=== PATIENT | female | born 1945 | race Caucasian/White ===

== ENCOUNTER 2016-06-07 19:51 | Inpatient (IN) | payer OTHER, MEDICARE ==
--- NOTE | 2016-06-07 19:54 | PDOC ---
History of Present Illness - General History Source: Patient Exam Limitations: No Limitations - History of Present Illness Initial Comments: 06/07/16 20:27 The patient is a 70 year old female, with no significant past medical history, who presents today with right hand and right wrist swelling after being scratched by her cat 2 days ago. The patient reports that her cat accidentally got stuck in the closet and scratched and clawed at her when she attempted to set the cat free. She states that the right wrist and hand became increasingly swollen today. She has multiple other scratches on her left arm and lower extremities. Denies fever, chills, nausea, vomiting. Denies chest pain, cough, SOB. Allergies: none reported ROS General: No fevers or chills, no weakness, no weight loss HEENT: No change in vision. No sore throat,. No ear pain CardioVascular: No chest pain or shortness of breath Respiratory:No cough, or wheezing. Gastrointestinal: no nausea, vomiting, diarrhea or constipation, No rectal bleeding Genitourinary: No dysuria, hematuria, or frequency Musculoskeletal: +right hand and wrist swelling. Neurologic: No headache, vertigo, dizziness or loss of consciousness Psychiatric: nor depression Skin: No rashes or easy bruising Endocrine: no increased thirst or abnormal weight change Allergic: no skin or latex allergy All other systems reviewed and normal PE GENERAL: The patient is awake, alert, and fully oriented, in no acute distress. HEAD: Normal with no signs of trauma. EYES: Pupils equal, round and reactive to light, extraocular movements intact, sclera anicteric, conjunctiva clear. EXTREMITIES: Right hand markedly swollen to approximately just below the elbow. Blistering of the skin over the wrist area. Marked decreased ROM secondary to swelling. Swelling extends diffusely to all fingers. No palpable collection. Increased warmth and diffuse erythema of the swollen area. No ascending lymphangitis above the elbow. NEUROLOGICAL: Normal speech, normal gait. PSYCH: Normal mood, normal affect. SKIN: Warm, Dry, normal turgor, no rashes or lesions noted. 06/07/16 20:49 <Yin Fierro - Last Filed: 06/07/16 20:49> - General History Source: Patient Exam Limitations: No Limitations - History of Present Illness Initial Comments: 06/07/16 20:21 A portion of this note was documented by scribe services under my direction. I have reviewed the details of the note, within reason, and agree with the documentation. The case summary and management plan written by me. EKG normal sinus rhythm at a rate of 83, no acute ST-T wave changes, normal intervals. Assessment and plan: This is an 70-year-old female who takes no medication does not have a doctor that she follows up with it is otherwise healthy who was bit and scratched by her cat 2 days ago. Patient has had progressive pain swelling and redness of her right hand and wrist and forearm area. Patient comes in today for evaluation of the area. Patient's lab work shows a normal white count and no left shift. Patient is afebrile. Patient is able to tolerate by mouth's however given the extent of the infection and the rapidity with which it progressed I feel she would benefit with 24-48 hours of IV antibiotics. Discussed admission with Dr. Mary from the hospitalist service who will admit patient. <Albertina Moulton I - Last Filed: 06/07/16 21:03> - General Chief Complaint: Bite Stated Complaint: CAT BITE ON WEDNESDAY Time Seen by Provider: 06/07/16 19:53 Past History <Yin Fierro - Last Filed: 06/07/16 20:49> <Albertina Moulton I - Last Filed: 06/07/16 21:03> - Past Medical History Allergies/Adverse Reactions: Allergies Allergy/AdvReac Type Severity Reaction Status Date / Time No Known Allergies Allergy Verified 06/07/16 19:54 Home Medications: Ambulatory Orders NK [No Known Home Medication] 06/07/16 *Physical Exam - Vital Signs Last Vital Signs Temp Pulse Resp BP Pulse Ox 98 F 80 16 119/73 100 06/07/16 19:56 06/07/16 19:56 06/07/16 19:56 06/07/16 19:56 06/07/16 19:56 <Yin Fierro - Last Filed: 06/07/16 20:49> ED Treatment Course - LABORATORY CBC & Chemistry Diagram: 06/07/16 20:10 06/07/16 20:10 <Yin Fierro - Last Filed: 06/07/16 20:49> - LABORATORY CBC & Chemistry Diagram: 06/07/16 20:10 06/07/16 20:10 <Albertina Moulton I - Last Filed: 06/07/16 21:03> *DC/Admit/Observation/Transfer - Attestations Scribe Attestion: 06/07/16 20:28 Documentation prepared by GOMEZ Hess, acting as director of medical education for Albertina Moulton MD. <Yin Fierro - Last Filed: 06/07/16 20:49> - Discharge Dispostion Admit: Yes <Albertina Moulton I - Last Filed: 06/07/16 21:03> Diagnosis at time of Disposition: Cellulitis of right hand - Discharge Dispostion Disposition: HOME Condition at time of disposition: Stable
[2016-06-07] MEDS ORDERED: PIPERACILLIN/TAZOB 3.375 GM/50 ML PRE-DOCKED IVPB STA (19:55)
[2016-06-07 20:28] LABS: BASOPHIL 0.6 % (0-2.0); EOSINOPHIL 0.5 % (0-4.5); MCH 28.6 pg (25.7-33.7); MCHC 32.5 g/dl (32.0-36.0); MEAN CELL VOLUME 88.1 fl (80-96); MEAN PLT VOLUME 8.6 fl (7.5-11.1); NEUTROPHILS 76.7 % (42.8-82.8); PLATELET COUNT 287 K/MM3 (134-434); RDW 12.9 % (11.6-15.6); WHITE BLOOD COUNT 9.2 K/mm3 (4.0-10.0)
[2016-06-07 20:42] LABS: ALBUMIN 3.5 g/dl (3.5-5.0); ALK PHOS 59 U/L (32-92); ANION GAP 12 (8-16); BILIRUBIN,TOTAL 0.4 mg/dl (0.2-1.0); CALCIUM 8.9 mg/dl (8.4-10.2); CO2 24 mmol/L (22-28); CREATININE 0.8 mg/dl (0.6-1.3); GLUCOSE,RANDOM 124 mg/dl (74-106); SGOT/AST 32 U/L (10-42); SGPT/ALT 29 U/L (10-40); TOT PROT 6.8 g/dl (6.4-8.3)
[2016-06-07] MEDS ORDERED: DIPHTH,PERTUSS(ACELL),TET 0.5 ML DISP.SYRIN IM ONE (21:28)
--- NOTE | 2016-06-07 23:38 | HP ---
Admitting History and Physical - Admission Chief Complaint: cat bite, scratch History of Present Illness: The patient is a 70 year old female, with no significant past medical history, who presents today with right hand and right wrist swelling after being scratched by her cat 2 days ago. She reports increased swelling, redness and stiffness to R wrist area. She reports draining pus from R wrist wound. She also received multiple scratch elsewhere to her arms and legs. She reports swelling to the L forearm area but no discomfort. She reports having low grade temp 1 day ago. She denies nausea, vomiting, diarrhea, chills, body aches. She denies chest pain, sob, palps, syncope, dysuria, bowel trouble. pmh/psh- denies social- denies famhx- dad- prostate ca Ros neg except for hpi Physical general- in nad, alert hent- at/nc, asher, neck supple, trachea midline, eomi resp- no cough, no rales, no wheeze, lungs ctab, no accessory muscle use cards- s1s2 heard, no jvd, no leg edema, extremity pulses +2 skin- cellulitis to R wrist, swelling to hand, multiple scratches to arms and lower extremities gi- soft non tender, no guarding, no rebound, no distention musk- decreased arom to R wrist, intact arom to R elbow, shoulder. redness and swelling to R wrist. normal arom to ble, LUE neuro- cn2-12 grossly intact, asher, no seizures, speech clear psych- cooperative, no agitation, normal affect Prob list cellulitis to R wrist possible abscess to L forearm imaging: cxr image reviewed forearm and wrist x ray pending ekg reviewed A/p The patient is a 70 year old female, with no significant past medical history, who presents today with right hand and right wrist swelling after being scratched by her cat 2 days ago admitted for evaluation of their emergent condition. 1. Cellulitis to R wrist Was bit and scratched by her cat Started on zosyn iv Got tdap in er ID consult Pain control, arm elevation Follow up wound cultures Check x ray of wrist Check crp, esr Local wound care 2. Possible abscess to L forearm fluctulance to L forearm area with swelling but no redness, abrasion overlying skin check x ray Dvt prophy scd, oob, hep sq fen reg diet dispo- requires > 2mn stay for acute cellulitis History Source: Patient Limitations to Obtaining History: No Limitations - Smoking History Smoking history: Never smoked Have you smoked in the past 12 months: No - Alcohol/Substance Use Hx Alcohol Use: No Home Medications - Allergies Allergies/Adverse Reactions: Allergies Allergy/AdvReac Type Severity Reaction Status Date / Time No Known Allergies Allergy Verified 06/07/16 19:54 - Home Medications Home Medications: Ambulatory Orders NK [No Known Home Medication] 06/07/16 Physical Examination Vital Signs: Vital Signs Temperature 98 F 06/07/16 19:56 Pulse Rate 80 06/07/16 19:56 Respiratory Rate 16 06/07/16 19:56 Blood Pressure 119/73 06/07/16 19:56 O2 Sat by Pulse Oximetry (%) 100 06/07/16 19:56 Visit type - Emergency Visit Emergency Visit: Yes ED Registration Date: 06/07/16 Care time: The patient presented to the Emergency Department on the above date and was hospitalized for further evaluation of their emergent condition. - New Patient This patient is new to me today: Yes Date on this admission: 06/08/16 - Critical Care Critical Care patient: No
[2016-06-07] MEDS ORDERED: ACETAMINOPHEN 325 MG TABLET (FP) PO PRN (23:51)
[2016-06-07] MEDS ORDERED: ONDANSETRON 4 MG/2 ML VIAL IVPB PRN (23:51)
[2016-06-08 00:19] VITALS: BMI 20.1
[2016-06-08 08:34] LABS: MCH 29.1 pg (25.7-33.7); MCHC 32.6 g/dl (32.0-36.0); MEAN CELL VOLUME 89.3 fl (80-96); PLATELET COUNT 298 K/MM3 (134-434); WHITE BLOOD COUNT 6.9 K/mm3 (4.0-10.0)
[2016-06-08 08:53] LABS: INR 1.15 (0.82-1.09); PROTHROMBIN TIME (PATIENT) 12.5 SEC (10.2-13.0)
[2016-06-08 08:57] LABS: CALCIUM 9.1 mg/dl (8.4-10.2); CREATININE 0.5 mg/dl (0.6-1.3)
[2016-06-08 09:00] LABS: ACTIVATED PTT 26.2 SECONDS (24.0-38.9)
[2016-06-08] MEDS: HEPARIN NA (PORCINE) 5,000 UNITS/ML 1ML VIAL SQ SCH ×2 (09:47→21:24)
--- NOTE | 2016-06-08 09:50 | PN ---
Progress Note (short form) - Note Progress Note: ID Consult dictated Cellulitis R hand S/P cat scratch/ bite Pending c/s, empiric unasyn/ vancomycin Elevation, analgesics
[2016-06-08] MEDS ORDERED: PNEUMOC 13-VAL CONJ-DIP CRM/PF 0.5 ML DISP.SYRIN IM ONE (10:00)
--- NOTE | 2016-06-08 10:20 | EKG ---
Test Reason : Blood Pressure : / mmHG Vent. Rate : 083 BPM Atrial Rate : 083 BPM P-R Int : 138 ms QRS Dur : 072 ms QT Int : 354 ms P-R-T Axes : 093 057 071 degrees QTc Int : 415 ms POOR DATA QUALITY, INTERPRETATION MAY BE ADVERSELY AFFECTED NORMAL SINUS RHYTHM POSSIBLE LEFT ATRIAL ENLARGEMENT BORDERLINE ECG NO PREVIOUS ECGS AVAILABLE Confirmed by ALEX CLAY MD ([id number]) on 06/08/2016 10:20:16 AM Referred By: YESSENIA Confirmed By:ALEX CLAY MD
--- NOTE | 2016-06-08 10:45 | CONS ---
DATE OF CONSULTATION: HISTORY: The patient is a 70-year-old female previously healthy, nondiabetic evaluated for right hand cellulitis. The patient had sustained cat scratches and bites to multiple areas of her body on Sunday, June 05, 2016. She reports that the cat is a house cat, and she has been taking care of her for the last 3 years. She is up to date with respect to immunizations. On Wednesday, the cat was caught inside a kitchen cabinet. The patient attempted to extract the cat from the cabinet, however, sustained multiple bites and scratches to both upper and lower extremities the most significant of which was the right wrist area. She treated it topically with peroxide. The developed worsening right hand and wrist swelling and erythema. She also noted some purulent drainage from the right wrist area and low-grade temperature. She presented to the emergency room where she was diagnosed with cellulitis of the right hand. She was empirically treated with Zosyn. She received a dose of tetanus toxoid. The patient reports the cat is up to date with immunizations. No reported fever or chills. PAST MEDICAL HISTORY: Negative. ALLERGIES: No known allergies. SOCIAL HISTORY: Lives at home. Nonsmoker, nondrinker. REVIEW OF SYSTEMS: Neurologic: No loss of consciousness, seizure activity, focal weakness. Cardiac: Negative chest pain or palpitations. Respiratory: Negative cough or sputum production. Gastrointestinal: Negative vomiting or diarrhea. Genitourinary: Negative for urinary tract infection. LABORATORY DATA: White count 6.9, hematocrit 35.6, platelet count 298. Liver enzymes normal. Blood cultures and wound culture pending. Creatinine 0.5. X-ray shows soft tissue swelling of the right hand. PHYSICAL EXAMINATION: General: She is awake and alert. She is not acutely toxic appearing. Vital Signs: Temperature 99.1, blood pressure 106/60, pulse 95 and regular, respirations 20 per minute. HEENT: Anicteric. Neck: Supple. Heart: S1, S2. Lungs: Clear. Abdomen: Soft and nontender. Extremities: Negative for edema. Right hand: There is an area of erythema present along the radial artery of the dorsum of the right wrist. It is erythematous and warm to touch. There is tenderness. There is no fluctuance or expressible pus. There is swelling of the dorsum of the right hand. Multiple scratch beckman are also noted on the right upper extremity as well as the lower extremities bilaterally. They do not appear to be infected. Lymphatic: No lymphangitic streaking. No epitrochlear or axillary adenopathy. IMPRESSION: 1. Cellulitis of the right hand. 2. Status post cat scratches and bites to the right upper extremity. PLAN: Pending cultures. Empiric antibiotic coverage with vancomycin and Unasyn. Continue elevation and analgesics. Warm compresses. We will follow. Thank you for the kind referral. RIANNA WASHBURN M.D. [id number]
[2016-06-08] MEDS: AMPICILLIN NA/SULBACTAM NA 100 ML IVPB SCH ×3 (11:18→21:23)
[2016-06-08] MEDS: VANCOMYCIN 1 GRAM (PRE-DOCKED) 250 ML IVPB SCH ×2 (11:26→22:42)
--- NOTE | 2016-06-08 12:12 | PN ---
[id number] of the right wrist OBJECTIVE: patient is a 70 year old female, with no significant past medical history, she was admitted from the emergency department for right hand cellulitis status post cat bite (06/05/2016) Vital Signs Period Temp Pulse Resp BP Sys/Mchugh Pulse Ox Last 24 Hr 98.8 F-99.1 F 73-95 16-20 106-119/58-72 96-99 GENERAL: The patient is awake, alert, and fully oriented, in no acute distress. HEAD: Normal with no signs of trauma. EYES: PERRL, extraocular movements intact, sclera anicteric, conjunctiva clear. No ptosis. ENT: Ears normal, nares patent, oropharynx clear without exudates, moist mucous membranes. NECK: Trachea midline, full range of motion, supple. LUNGS: Breath sounds equal, clear to auscultation bilaterally, no wheezes, no crackles, no accessory muscle use. HEART: Regular rate and rhythm, S1, S2 without murmur, rub or gallop. ABDOMEN: Soft, nontender, nondistended, normoactive bowel sounds, no guarding, no rebound, no hepatosplenomegaly, no masses. EXTREMITIES: 2+ pulses, warm, well-perfused, RIGHT UPPER EXTREMITY: +1 edema, puncture wound noted to the medial wrist, 6 cm of erythema, area marked NEUROLOGICAL: Cranial nerves II through XII grossly intact. Normal speech, gait not observed. PSYCH: Normal mood, normal affect. SKIN: Warm, dry, normal turgor, no rashes or lesions noted Laboratory Results - last 24 hr 06/08/16 06/08/16 06/08/16 07:57 08:00 08:00 WBC 6.9 RBC 3.98 Hgb 11.6 Hct 35.6 MCV 89.3 MCHC 32.6 RDW 13.0 Plt Count 298 MPV 9.0 ESR 90 H INR 1.15 PTT (Actin FS) 26.2 L Sodium Potassium Chloride Carbon Dioxide Anion Gap BUN Creatinine Random Glucose Calcium 06/08/16 08:00 WBC RBC Hgb Hct MCV MCHC RDW Plt Count MPV ESR INR PTT (Actin FS) Sodium 138 Potassium 3.9 Chloride 104 Carbon Dioxide 24 Anion Gap 10 BUN 14 D Creatinine 0.5 L D Random Glucose 103 Calcium 9.1 Active Medications Generic Name Dose Route Start Last Admin Trade Name Freq PRN Reason Stop Dose Admin Acetaminophen 650 mg 06/07/16 23:51 Tylenol - PO Q4H PRN FEVER OR PAIN Heparin Sodium (Porcine) 5,000 unit 06/08/16 10:00 06/08/16 09:47 Heparin - SQ 5,000 unit BID JOHN Administration Ampicillin Sodium/Sulbactam Sodium 100 mls @ 200 mls/hr 06/08/16 10:00 11:18 Unasyn 1.5 Gm (Pre-Docked) IVPB 200 mls/hr Q6H-IV JOHN Administration Vancomycin HCl 250 mls @ 166.667 mls/hr 06/08/16 10:30 06/08/16 11:26 Vancomycin (Pre-Docked) IVPB 166.667 mls/hr Q12H JOHN Administration Ondansetron HCl 4 mg 06/07/16 23:51 Zofran Injection IVPB Q6H PRN NAUSEA IMAGING xray of right wrist/forearm, soft tissue swelling ASSESSMENT/PLAN: 1) MS: s/p cat bite, right wrist cellulitis - caontinue unasyn and vancomycin - prn pain medication - f/u wound/blood cultures - appreciate, hand surgeon input (Joseph), case discussed with DAKOTAH Mendoza will evaluate patient today Dvt prophy scd, oob, hep sq fen reg diet dispo- requires > 2mn stay for acute cellulitis Visit type - Emergency Visit Emergency Visit: Yes ED Registration Date: 06/07/16 Care time: The patient presented to the Emergency Department on the above date and was hospitalized for further evaluation of their emergent condition. - New Patient This patient is new to me today: Yes Date on this admission: 06/08/16 - Critical Care Critical Care patient: No - Discharge Referral Referred to [facility] No
[2016-06-08 12:32] LABS: PH,URINE 7.5 (4.5-8); URINE APPEARANCE Clear; URINE BILIRUBIN Negative (NEGATIVE); URINE BLOOD Trace-intact (NEGATIVE); URINE GLUCOSE (UA) Negative (NEGATIVE); URINE KETONE Negative (NEGATIVE); URINE LEUK ESTERASE Negative (NEGATIVE); URINE NITRITE Negative (NEGATIVE); URINE PROTEIN Negative (NEGATIVE); URINE UROBILINOGEN 1.0 E.U/dl (0.2-1.0)
[2016-06-08 13:15] LABS: URINE COLOR YELLOW
--- NOTE | 2016-06-08 18:22 | CONSULT ---
Consult - text type - Consultation Consultation Note: Orthopedic Consult Note: Patient seen and examined, chart and radiographs reviewed. Consult Request Right Wrist: The patient is a 70 year old female, with no significant past medical history, who presented today with right hand and right wrist swelling after being scratched by her cat 4 days ago. At the time of the injury she relates having increased swelling, redness and stiffness to R wrist area. She reports draining pus from R wrist wound. She reports swelling to the L forearm area but no discomfort. She reports having low grade temp 3 day ago. S: She denies nausea, vomiting, diarrhea, chills, body aches. She denies chest pain, sob, palps, syncope, dysuria, bowel trouble. Overall relates feeling slight improvement since being on the antibiotics. States pain well controlled, c/o more of a "stiffness" with wrist/finger movement, tenderness over dorsal aspect of wrist. Tolerating diet without compromise. O: CBC, BMP 06/08/16 08:00 06/08/16 08:00 Vital Signs Period Temp Pulse Resp BP Sys/Mchugh Pulse Ox Last 24 Hr 98 F-99.3 F 73-95 16-20 86-121/54-73 96-100 Wound & Blood cultures are pending. Patient currently on Vanco & Unisyn. Xrays & CT Negative for fracture. Soft tissue swelling noted without evidence of osteomyelitis, no evidence of Abscess noted. GEN: Patient seated in chair at bedside, SAMSON/NAD/VSS/Afebrile, Color good well appearing answering all questions appropriately. R UE: Wrist/forearm bandaged, SILT/NVID. Dressing taken down, small puncture wound dorsal aspect of wrist with receding area of cellulitis/erythema as evidenced by initial outlines, area of edema/effusion has reduced by half. No ventral erythema. Patient tender over dorsal aspect of wrist around puncture site, minor sersanguinous drainage. No yanni pus noted on dressings, wrist with tender and reduced range of motion. Patient able to make partial fist but notes increased stiffness. Radial pulse strong and regular. No pain at elbow. A/P: 70F s/p Cat scratch with cellulitis dorsal aspect right wrist. 1. Pain Control 2. Continue Antibiotic as ordered 3. Await Result of cultures 4. Maintain dressings, inspect incision daily, outline area of erythema and track progression/recession 5. Neuro checks R UE per unit routine 6. Continue strict Elevation R UE at all times 7. Dr. Garcia will also see patient and confirm continued Orthopedic plan; at this time likely no surgical intervention
[2016-06-09] MEDS: AMPICILLIN NA/SULBACTAM NA 100 ML IVPB SCH ×4 (03:00→21:54)
[2016-06-09 08:57] LABS: BASOPHIL 0.5 % (0-2.0); EOSINOPHIL 1.2 % (0-4.5); MCH 28.3 pg (25.7-33.7); MCHC 31.6 g/dl (32.0-36.0); MEAN CELL VOLUME 89.6 fl (80-96); MEAN PLT VOLUME 8.4 fl (7.5-11.1); NEUTROPHILS 68.3 % (42.8-82.8); PLATELET COUNT 327 K/MM3 (134-434); RDW 12.8 % (11.6-15.6); WHITE BLOOD COUNT 5.2 K/mm3 (4.0-10.0)
[2016-06-09 09:12] LABS: CALCIUM 9.4 mg/dl (8.4-10.2); CREATININE 0.5 mg/dl (0.6-1.3)
--- NOTE | 2016-06-09 09:27 | PN ---
Progress Note, Physician History of Present Illness: Complains of R hand stiffness No c/o hand pain No fever/ chills Tolerating antibiotics Blood c/s no growth CT no ST abscess - Current Medication List Current Medications: Active Medications Acetaminophen (Tylenol -) 650 mg PO Q4H PRN PRN Reason: FEVER OR PAIN Heparin Sodium (Porcine) (Heparin -) 5,000 unit SQ BID [facility] Last Admin: 06/08/16 21:24 Dose: 5,000 unit Ampicillin Sodium/Sulbactam Sodium (Unasyn 1.5 Gm (Pre-Docked)) 100 mls @ 200 mls/hr IVPB Q6H-IV JOHN Last Admin: 06/09/16 03:00 Dose: 200 mls/hr Vancomycin HCl (Vancomycin (Pre-Docked)) 250 mls @ 166.667 mls/hr IVPB Q12H [facility] Last Admin: 06/08/16 22:42 Dose: 166.667 mls/hr Ondansetron HCl (Zofran Injection) 4 mg IVPB Q6H PRN PRN Reason: NAUSEA - Objective Vital Signs: Vital Signs Temperature 98.6 F 06/09/16 06:00 Pulse Rate 77 06/09/16 06:00 Respiratory Rate 19 06/09/16 06:00 Blood Pressure 113/72 06/09/16 06:00 O2 Sat by Pulse Oximetry (%) 100 06/09/16 06:00 Constitutional: Yes: No Distress, Thin Eyes: Yes: Conjunctiva Clear Cardiovascular: Yes: Regular Rate and Rhythm, S1, S2 Respiratory: Yes: CTA Bilaterally Gastrointestinal: Yes: Normal Bowel Sounds, Soft. No: Tenderness Extremities: Yes: Other (decreased swelling and erythema R hand increased ROM No lymphangitic streaking) Labs: CBC, BMP BC (-) 06/09/16 08:15 06/09/16 08:15 INR, PTT INR 1.15 (0.82-1.09) 06/08/16 08:00 Assessment/Plan Cellulitis R Hand Possible organizing ST abscess S/P cat scratch/ bite Await c/s Continue empiric vancomycin/ unasyn Elevation
[2016-06-09] MEDS: HEPARIN NA (PORCINE) 5,000 UNITS/ML 1ML VIAL SQ SCH ×2 (10:29→21:56)
[2016-06-09] MEDS: VANCOMYCIN 1 GRAM (PRE-DOCKED) 250 ML IVPB SCH ×2 (10:47→21:56)
[2016-06-09] MEDS: PIPERACILLIN/TAZOB 3.375 GM/50 ML PRE-DOCKED IVPB SCH (11:38)
--- NOTE | 2016-06-09 11:46 | PN ---
Progress Note, Physician History of Present Illness: she feels well. She has been receiving IV antibiotics. She has no new complaints today. She is feeling much better today. - Current Medication List Current Medications: Active Medications Acetaminophen (Tylenol -) 650 mg PO Q4H PRN PRN Reason: FEVER OR PAIN Heparin Sodium (Porcine) (Heparin -) 5,000 unit SQ BID [facility] Last Admin: 06/09/16 10:29 Dose: 5,000 unit Ampicillin Sodium/Sulbactam Sodium (Unasyn 1.5 Gm (Pre-Docked)) 100 mls @ 200 mls/hr IVPB Q6H-IV JOHN Last Admin: 06/09/16 10:29 Dose: 200 mls/hr Vancomycin HCl (Vancomycin (Pre-Docked)) 250 mls @ 166.667 mls/hr IVPB Q12H [facility] Last Admin: 06/09/16 10:47 Dose: 166.667 mls/hr Ondansetron HCl (Zofran Injection) 4 mg IVPB Q6H PRN PRN Reason: NAUSEA - Objective Vital Signs: Vital Signs Temperature 98.5 F 06/09/16 11:21 Pulse Rate 80 06/09/16 11:21 Respiratory Rate 18 06/09/16 11:21 Blood Pressure 113/69 06/09/16 11:21 O2 Sat by Pulse Oximetry (%) 100 06/09/16 06:00 Constitutional: Yes: Well Nourished, No Distress Extremities: Yes: Other (Right wrist: Small wound with surrounding erythema on the dorsum of the wrist just proximal to the radiocarpal joint. Approx 2cc of serous fluid with a small amount of pus was elicited from this wound. The erythema has receded from skin marker. Fingers and wrist are mobile. NVID.) Labs: CBC, BMP 06/09/16 08:15 06/09/16 08:15 INR, PTT INR 1.15 (0.82-1.09) 06/08/16 08:00 Assessment/Plan #1 right wrist cellulitis -Continue IV ABX -Elevation and finger ROM encouraged -Appears to be improving with ABX, will recheck tomorrow Pt was seen with Dr Garcia
--- NOTE | 2016-06-09 13:13 | PN ---
[id number]:patient is a 70 year old female, with no significant past medical history, she was admitted from the emergency department for right hand cellulitis status post cat bite (06/05/2016) Vital Signs Period Temp Pulse Resp BP Sys/Mchugh Pulse Ox Last 24 Hr 98.5 F-99.3 F 77-91 18-19 86-113/54-72 96-100 physical examination GENERAL: The patient is awake, alert, and fully oriented, in no acute distress. HEAD: Normal with no signs of trauma. EYES: PERRL, extraocular movements intact, sclera anicteric, conjunctiva clear. No ptosis. ENT: Ears normal, nares patent, oropharynx clear without exudates, moist mucous membranes. NECK: Trachea midline, full range of motion, supple. LUNGS: Breath sounds equal, clear to auscultation bilaterally, no wheezes, no crackles, no accessory muscle use. HEART: Regular rate and rhythm, S1, S2 without murmur, rub or gallop. ABDOMEN: Soft, nontender, nondistended, normoactive bowel sounds, no guarding, no rebound, no hepatosplenomegaly, no masses. EXTREMITIES: 2+ pulses, warm, well-perfused, RIGHT UPPER EXTREMITY: +1 edema, puncture wound noted to the medial wrist, 4 cm of erythema, erythema is not extending past markings NEUROLOGICAL: Cranial nerves II through XII grossly intact. Normal speech, gait not observed. PSYCH: Normal mood, normal affect. SKIN: Warm, dry, normal turgor, no rashes or lesions noted Laboratory Results - last 24 hr 06/08/16 06/09/16 06/09/16 12:30 08:15 08:15 WBC 5.2 RBC 4.30 Hgb 12.2 Hct 38.6 MCV 89.6 MCHC 31.6 L RDW 12.8 Plt Count 327 MPV 8.4 Neutrophils % 68.3 Lymphocytes % 20.3 D Monocytes % 9.7 Eosinophils % 1.2 D Basophils % 0.5 Sodium 137 Potassium 4.0 Chloride 103 Carbon Dioxide 26 Anion Gap 8 BUN 12 Creatinine 0.5 L Random Glucose 105 Calcium 9.4 Urine Color Yellow Urine Appearance Clear Urine pH 7.5 Ur Specific [place] 1.015 Urine Protein Negative Urine Glucose (UA) Negative Urine Ketones Negative Urine Blood Trace-intact Urine Nitrite Negative Urine Bilirubin Negative Urine Urobilinogen 1.0 e.u/dl Ur Leukocyte Esterase Negative Active Medications Generic Name Dose Route Start Last Admin Trade Name Freq PRN Reason Stop Dose Admin Acetaminophen 650 mg 06/07/16 23:51 Tylenol - PO Q4H PRN FEVER OR PAIN Heparin Sodium (Porcine) 5,000 unit 06/08/16 10:00 06/09/16 10:29 Heparin - SQ 5,000 unit BID JOHN Administration Ampicillin Sodium/Sulbactam Sodium 100 mls @ 200 mls/hr 06/08/16 10:00 10:29 Unasyn 1.5 Gm (Pre-Docked) IVPB 200 mls/hr Q6H-IV JOHN Administration Vancomycin HCl 250 mls @ 166.667 mls/hr 06/08/16 10:30 06/09/16 10:47 Vancomycin (Pre-Docked) IVPB 166.667 mls/hr Q12H JOHN Administration Ondansetron HCl 4 mg 06/07/16 23:51 Zofran Injection IVPB Q6H PRN NAUSEA Microbiology 06/08/16 00:50 Wrist - Right Gram Stain - Final 06/08/16 00:50 Wrist - Right Wound Culture - Preliminary Pending Organism 06/07/16 20:10 Blood - Peripheral Venous Blood Culture - Preliminary NO GROWTH OBTAINED AFTER 24 HOURS, INCUBATION TO CONTINUE FOR 4 DAYS. 06/07/16 20:10 Blood - Peripheral Venous Blood Culture - Preliminary NO GROWTH OBTAINED AFTER 24 HOURS, INCUBATION TO CONTINUE FOR 4 DAYS. IMAGING xray of right wrist/forearm, soft tissue swelling CT of the right upper extremity,soft tissue edema no discrete abscess ASSESSMENT/PLAN: 1) MS: s/p cat bite, right wrist cellulitis - continue Unasyn and vancomycin and agree with ID - Orthopedist, hand surgeon Dr Ruiz was consulted and followed - prn pain medication - wound culture pending organism will follow - continue elevation of right upper extremity Dvt prophy scd, oob, hep sq fen reg diet dispo- requires > 2mn stay for acute cellulitis Visit type - Emergency Visit Emergency Visit: Yes ED Registration Date: 06/07/16 Care time: The patient presented to the Emergency Department on the above date and was hospitalized for further evaluation of their emergent condition. - New Patient This patient is new to me today: No - Critical Care Critical Care patient: No - Discharge Referral Referred to [facility] No
[2016-06-10] MEDS: AMPICILLIN NA/SULBACTAM NA 100 ML IVPB SCH ×4 (02:04→20:35)
[2016-06-10 08:54] LABS: BASOPHIL 0.7 % (0-2.0); EOSINOPHIL 1.9 % (0-4.5); MCH 28.9 pg (25.7-33.7); MCHC 32.4 g/dl (32.0-36.0); MEAN CELL VOLUME 89.1 fl (80-96); MEAN PLT VOLUME 8.4 fl (7.5-11.1); NEUTROPHILS 67.9 % (42.8-82.8); PLATELET COUNT 366 K/MM3 (134-434); RDW 12.9 % (11.6-15.6); WHITE BLOOD COUNT 5.7 K/mm3 (4.0-10.0)
--- NOTE | 2016-06-10 08:56 | PN ---
Progress Note, Physician History of Present Illness: OOB in chair No c/o wrist/hand pain No fever/ chills Blood c/s (-) Wound c/s presumptive Pasturella sp. Afebrile WBC WNL - Current Medication List Current Medications: Active Medications Acetaminophen (Tylenol -) 650 mg PO Q4H PRN PRN Reason: FEVER OR PAIN Heparin Sodium (Porcine) (Heparin -) 5,000 unit SQ BID JOHN Last Admin: 06/09/16 21:56 Dose: 5,000 unit Ampicillin Sodium/Sulbactam Sodium (Unasyn 1.5 Gm (Pre-Docked)) 100 mls @ 200 mls/hr IVPB Q6H-IV JOHN Last Admin: 06/10/16 02:04 Dose: 200 mls/hr Vancomycin HCl (Vancomycin (Pre-Docked)) 250 mls @ 166.667 mls/hr IVPB Q12H JOHN Last Admin: 06/09/16 21:56 Dose: 166.667 mls/hr Ondansetron HCl (Zofran Injection) 4 mg IVPB Q6H PRN PRN Reason: NAUSEA - Objective Vital Signs: Vital Signs Temperature 98.6 F 06/10/16 05:54 Pulse Rate 86 06/10/16 05:54 Respiratory Rate 18 06/10/16 05:54 Blood Pressure 103/62 06/10/16 05:54 O2 Sat by Pulse Oximetry (%) 97 06/10/16 05:54 Constitutional: Yes: Thin Cardiovascular: Yes: Regular Rate and Rhythm, S1, S2 Respiratory: Yes: CTA Bilaterally Gastrointestinal: Yes: Normal Bowel Sounds, Soft. No: Tenderness Extremities: Yes: Other (area of erythema/ induration receding no expressible pus no lymphangitis) Labs: INR, PTT INR 1.15 (0.82-1.09) 06/08/16 08:00 Assessment/Plan Cellulitis R Hand- improving Possible organizing ST abscess S/P cat scratch/ bite Await c/s- lab suspects Pasturella Continue empiric unasyn. D/C vancomycin Elevation
[2016-06-10 09:15] LABS: CALCIUM 9.5 mg/dl (8.4-10.2); CREATININE 0.5 mg/dl (0.6-1.3)
[2016-06-10] MEDS: HEPARIN NA (PORCINE) 5,000 UNITS/ML 1ML VIAL SQ SCH ×2 (10:09→21:32)
--- NOTE | 2016-06-10 13:49 | PN ---
Physical Exam: SUBJECTIVE: Patient seen and examined, patient reports resolution of right wrist stiffness OBJECTIVE:patient is a 70 year old female, with no significant past medical history, she was admitted from the emergency department for right hand cellulitis status post cat bite (06/05/2016) Vital Signs Period Temp Pulse Resp BP Sys/Mchugh Pulse Ox Last 24 Hr 98.6 F-99.6 F 72-86 16-18 100-103/55-62 97-98 physical examination GENERAL: The patient is awake, alert, and fully oriented, in no acute distress. HEAD: Normal with no signs of trauma. EYES: PERRL, extraocular movements intact, sclera anicteric, conjunctiva clear. No ptosis. ENT: Ears normal, nares patent, oropharynx clear without exudates, moist mucous membranes. NECK: Trachea midline, full range of motion, supple. LUNGS: Breath sounds equal, clear to auscultation bilaterally, no wheezes, no crackles, no accessory muscle use. HEART: Regular rate and rhythm, S1, S2 without murmur, rub or gallop. ABDOMEN: Soft, nontender, nondistended, normoactive bowel sounds, no guarding, no rebound, no hepatosplenomegaly, no masses. EXTREMITIES: 2+ pulses, warm, well-perfused, RIGHT UPPER EXTREMITY: +1 edema, puncture wound noted to the medial wrist, 3 cm of erythema,much improved, erythema is not extending past markings NEUROLOGICAL: Cranial nerves II through XII grossly intact. Normal speech, gait not observed. PSYCH: Normal mood, normal affect. SKIN: Warm, dry, normal turgor, no rashes or lesions noted Laboratory Results - last 24 hr 06/10/16 06/10/16 06/10/16 08:08 08:08 08:08 WBC 5.7 RBC 4.34 Hgb 12.5 Hct 38.6 MCV 89.1 MCHC 32.4 RDW 12.9 Plt Count 366 MPV 8.4 Neutrophils % 67.9 Lymphocytes % 20.7 Monocytes % 8.8 Eosinophils % 1.9 Basophils % 0.7 Sodium 138 Potassium 4.1 Chloride 102 Carbon Dioxide 26 Anion Gap 10 BUN 16 D Creatinine 0.5 L Random Glucose 108 H Calcium 9.5 Magnesium 2.0 Vancomycin Trough 11.635 H Active Medications Generic Name Dose Route Start Last Admin Trade Name Freq PRN Reason Stop Dose Admin Acetaminophen 650 mg 01/29/17 23:51 Tylenol - PO Q4H PRN FEVER OR PAIN Heparin Sodium (Porcine) 5,000 unit 06/08/16 10:00 06/10/16 10:09 Heparin - SQ Not Given BID JOHN Ampicillin Sodium/Sulbactam Sodium 100 mls @ 200 mls/hr 06/08/16 10:00 10:05 Unasyn 1.5 Gm (Pre-Docked) IVPB 200 mls/hr Q6H-IV JOHN Administration Ondansetron HCl 4 mg 06/07/16 23:51 Zofran Injection IVPB Q6H PRN NAUSEA Microbiology 06/08/16 00:50 Wrist - Right Gram Stain - Final 06/08/16 00:50 Wrist - Right Wound Culture - Final Pasteurella Multocida 06/07/16 20:10 Blood - Peripheral Venous Blood Culture - Preliminary NO GROWTH OBTAINED AFTER 48 HOURS, INCUBATION TO CONTINUE FOR 3 DAYS. 06/07/16 20:10 Blood - Peripheral Venous Blood Culture - Preliminary NO GROWTH OBTAINED AFTER 48 HOURS, INCUBATION TO CONTINUE FOR 3 DAYS. IMAGING xray of right wrist/forearm, soft tissue swelling CT of the right upper extremity,soft tissue edema no discrete abscess ASSESSMENT/PLAN: 1) MS: s/p cat bite, right wrist cellulitis - continue Unasyn agree with ID - Orthopedist, hand surgeon Dr Ruiz was consulted and followed - prn pain medication - wound culture pending organism will follow - continue elevation of right upper extremity Dvt prophy scd, oob, hep sq fen reg diet dispo- inpatient care Visit type - Emergency Visit Emergency Visit: Yes ED Registration Date: 06/07/16 Care time: The patient presented to the Emergency Department on the above date and was hospitalized for further evaluation of their emergent condition. - New Patient This patient is new to me today: No - Critical Care Critical Care patient: No - Discharge Referral Referred to [facility] No
--- NOTE | 2016-06-10 19:47 | PN ---
Progress Note, Physician History of Present Illness: She feels well. sitting in chair. pain minimal. no new complaints - Current Medication List Current Medications: Active Medications Acetaminophen (Tylenol -) 650 mg PO Q4H PRN PRN Reason: FEVER OR PAIN Heparin Sodium (Porcine) (Heparin -) 5,000 unit SQ BID [facility] Last Admin: 06/10/16 10:09 Dose: Not Given Ampicillin Sodium/Sulbactam Sodium (Unasyn 1.5 Gm (Pre-Docked)) 100 mls @ 200 mls/hr IVPB Q6H-IV [facility] Last Admin: 06/10/16 15:16 Dose: 200 mls/hr Ondansetron HCl (Zofran Injection) 4 mg IVPB Q6H PRN PRN Reason: NAUSEA - Objective Vital Signs: Vital Signs Temperature 98.5 F 06/10/16 18:00 Pulse Rate 85 06/10/16 18:00 Respiratory Rate 17 06/10/16 18:00 Blood Pressure 118/66 06/10/16 18:00 O2 Sat by Pulse Oximetry (%) 97 06/10/16 18:00 Constitutional: Yes: Well Nourished, No Distress, Calm HENT: Yes: Atraumatic, Normocephalic Extremities: Yes: Other (Right wrist: erythema improved since yesterday. A small amount of serous fluid approx 1cc was elicted from the wound. No pus today. Minimal tenderness. flexor and extensor tendons intact. Near full ROM of fingers. NVID.) Labs: CBC, BMP 06/10/16 08:08 06/10/16 08:08 INR, PTT INR 1.15 (0.82-1.09) 06/08/16 08:00 Assessment/Plan #1 right wrist cellulitis -Continue ABX per ID -Elevation and finger ROM -Change dressing if saturated -F/u in office next week with Dr. Garcia.
[2016-06-10 22:51] VITALS: TEMP 98.9
[2016-06-11] MEDS: AMPICILLIN NA/SULBACTAM NA 100 ML IVPB SCH ×2 (02:15→09:36)
[2016-06-11 05:39] VITALS: BP 112/58; PULSE 70
[2016-06-11] MEDS: HEPARIN NA (PORCINE) 5,000 UNITS/ML 1ML VIAL SQ SCH (09:38)
--- NOTE | 2016-06-11 09:49 | PN ---
Progress Note, Physician History of Present Illness: No c/o hand/ wrist pain No fever/ chills Tolerating antibiotics - Current Medication List Current Medications: Active Medications Acetaminophen (Tylenol -) 650 mg PO Q4H PRN PRN Reason: FEVER OR PAIN Heparin Sodium (Porcine) (Heparin -) 5,000 unit SQ BID [facility] Last Admin: 06/11/16 09:38 Dose: Not Given Ampicillin Sodium/Sulbactam Sodium (Unasyn 1.5 Gm (Pre-Docked)) 100 mls @ 200 mls/hr IVPB Q6H-IV JOHN Last Admin: 06/11/16 09:36 Dose: 200 mls/hr Ondansetron HCl (Zofran Injection) 4 mg IVPB Q6H PRN PRN Reason: NAUSEA - Objective Vital Signs: Vital Signs Temperature 98.9 F 06/11/16 05:38 Pulse Rate 70 06/11/16 05:38 Respiratory Rate 18 06/11/16 05:38 Blood Pressure 112/58 06/11/16 05:38 O2 Sat by Pulse Oximetry (%) 99 06/11/16 05:38 Constitutional: Yes: No Distress Eyes: Yes: Conjunctiva Clear Cardiovascular: Yes: Regular Rate and Rhythm, S1, S2 Respiratory: Yes: CTA Bilaterally Gastrointestinal: Yes: Normal Bowel Sounds, Soft. No: Tenderness Extremities: Yes: Other (receding erythema/ induartion/ tenderness wrist area no fluctuance or expressible pus) Labs: CBC, BMP 06/10/16 08:08 06/10/16 08:08 INR, PTT INR 1.15 (0.82-1.09) 06/08/16 08:00 Assessment/Plan Cellulitis R Hand- resolving + wound c/s Pasturella S/P cat scratch/ bite Clinically improved Substitute Augmentin 875mg po bid x 7d Local wound care
--- NOTE | 2016-06-11 11:28 | CONSULT ---
Consult - text type - Consultation Consultation Note: Consult Note; Orthopedics S: She feels well. Sitting in chair. Pain minimal. No new complaints, does relate range of motion and strength are improving. - Current Medication List Current Medications: Active Medications Acetaminophen (Tylenol -) 650 mg PO Q4H PRN PRN Reason: FEVER OR PAIN Heparin Sodium (Porcine) (Heparin -) 5,000 unit SQ BID JOHN Last Admin: 06/10/16 10:09 Dose: Not Given Ampicillin Sodium/Sulbactam Sodium (Unasyn 1.5 Gm (Pre-Docked)) 100 mls @ 200 mls/hr IVPB Q6H-IV JOHN Last Admin: 06/10/16 15:16 Dose: 200 mls/hr Ondansetron HCl (Zofran Injection) 4 mg IVPB Q6H PRN PRN Reason: NAUSEA - Objective Vital Signs: Vital Signs Period Temp Pulse Resp BP Sys/Mchugh Pulse Ox Last 24 Hr 98.5 F-99.3 F 70-85 16-18 99-118/58-76 97-99 Constitutional: Yes: Well Nourished, No Distress, Calm HENT: Yes: Atraumatic, Normocephalic Extremities: Yes: Other (Right wrist: erythema with continued improvement since yesterday; area of erythema now significantly receded from original lines of demarcation. No yanni drainage, dressings c/d/i. No pus today. Minimal tenderness. flexor and extensor tendons intact. Near full ROM of fingers. NVID.) Labs: CBC, BMP 06/10/16 08:08 06/10/16 08:08 Microbiology 06/07/16 20:10 Blood Culture - Preliminary Blood - Peripheral Venous NO GROWTH OBTAINED AFTER 72 HOURS, INCUBATION TO CONTINUE FOR 2 DAYS. 06/07/16 20:10 Blood Culture - Preliminary Blood - Peripheral Venous NO GROWTH OBTAINED AFTER 72 HOURS, INCUBATION TO CONTINUE FOR 2 DAYS. 06/08/16 00:50 Gram Stain - Final Wrist - Right Wound Culture - Final Pasteurella Multocida Assessment/Plan #1 right wrist cellulitis w/pasteurella resolving well on IV Abx -Continue ABX per ID -Elevation and finger ROM -Change dressing if saturated -F/u in office next week with Dr. Garcia - Discharge planning per primary team, patient orthopedically stable for discharge
--- NOTE | 2016-06-11 11:29 | DS ---
Physical Exam: SUBJECTIVE: Patient seen and examined OBJECTIVE: Vital Signs Period Temp Pulse Resp BP Sys/Mchugh Pulse Ox Last 24 Hr 98.5 F-99.3 F 70-85 16-18 99-118/58-76 97-99 PHYSICAL EXAM GENERAL: The patient is awake, alert, and fully oriented, in no acute distress. HEAD: Normal with no signs of trauma. EYES: PERRL, extraocular movements intact, sclera anicteric, conjunctiva clear. ENT: Ears normal, nares patent, oropharynx clear without exudates, moist mucous membranes. NECK: Trachea midline, full range of motion, supple. LUNGS: Breath sounds equal, clear to auscultation bilaterally, no wheezes, no crackles, no accessory muscle use. HEART: Regular rate and rhythm, S1, S2 without murmur, rub or gallop. ABDOMEN: Soft, nontender, nondistended, normoactive bowel sounds, no guarding, no rebound, no hepatosplenomegaly, no masses. EXTREMITIES: 2+ pulses, warm, well-perfused, no edema. NEUROLOGICAL: Cranial nerves II through XII grossly intact. Normal speech, gait not observed. PSYCH: Normal mood, normal affect. SKIN: Warm, dry, normal turgor, no rashes or lesions noted. LABS HOSPITAL COURSE: Date of Admission:06/07/16 Date of Discharge: 06/11/16 Minutes to complete discharge: 45 Discharge Summary Reason For Visit: CELLULITIS Current Active Problems Cellulitis of right hand (Acute) Condition: Stable - Instructions Referrals: Reji Cabezas MD [Staff Physician] - 1 Week - Home Medications Comprehensive Discharge Medication List: Ambulatory Orders NK [No Known Home Medication] 06/07/16 - Discharge Referral Referred to [facility] No
== END 2016-06-11 15:45 | disposition home or self-care (01) | DRG 603 ==
LOC: FER 19:51 → FM/S 20:54 → UNDOADMOB 21:43 → INTOOBSV 21:43 → FM/S 21:43 → OBSVTOIN 21:43
PROVIDERS: ADMIT Internal Medicine; ATTEND Nurse Practitioner Family
DX: L03.113 Cellulitis of right upper limb (principal); B96.89 Other specified bacterial agents as the cause of diseases classified elsewhere; W55.03XA Scratched by cat, initial encounter; W55.01XA Bitten by cat, initial encounter; Y93.89 Activity, other specified; Y92.000 Kitchen of unspecified non-institutional (private) residence as the place of occurrence of the external cause
CPT/HCPCS: 36415; 71020-TC; 73090-TC-LT; 73110-TC-RT; 73200-TC-RT; 80048; 80053; 81003; 83735; 85025; 85027; 85610; 85651; 85730; 86140; 87040; 87070; 87205; 90670; 90715; 93005; 99282-25; G0378; G0480; J1644